=== PATIENT | male | born 1980 | race Caucasian/White ===

== ENCOUNTER → 2016-12-27 | Outpatient (CLI) | payer OTHER ==
[~2016-12-27] MED LIST: DULO-24 PO; HYDR2TAB48 PO; TIZA4CAP PO
--- NOTE | 2016-12-28 18:45 | PAP/PSG TECHNICIAN REPORT ---
[facility] Radio Tower Technician Polysomnogram Report Study name: None Report date: 12/28/2016 Study date: 12/27/2016 Referring Physician: Edward Rushing M.D. Name: RAMIREZLANE Interpreting Physician: Edward Rushing M.D. Date of : 1980 Radio Tower Technician: Lillian Baker PSGT. Sex: Male Age: 36 StudyType: PSG Weight: 410 lbs Height: 36 years, Height 6' 8" Neck Circum:19.5 inches BMI: 45.04 Medications: Medication List was not provided. Patient History 36 yr. old male presents to the sleep lab for a diagnostic titration sleep study. Patient states that his machine is old and his mask is taped together. He would like to get a new machine, mask and tubing. Neck = 19.5 inches. Parameters Monitored NPSG: E1-M2, E2-M1, Fp1-M2, Fp2-M1, F3-M2, F4-M2, F4-M1, C3-M2, C4-M2, C4-M1, O1-M2, O2-M2, O2-M1, T3-M2, T4-M1, P3-M2, P4-M1, CHIN1, CHIN2, HR, EKG, Legs, PFLOW, SNOR, FLOW, CFLOW, Tidal Volume, THOR, ABDO, SpO2, PLTH, CPRESS, ETCO2 Wave, ETCO2, pH Sleep Architecture Sleep Stages Time at Lights Off 10:29:04 PM STAGES Time (min.) TST (%) Time at Lights On 5:00:04 AM Wake 92.0 -- Total Recording Time (TRT) 391.50 min. N1 18.0 6 Total Sleep Period (TSP) 307.0 min. N2 150.5 50 Total Sleep Time (TST) 299.0min. N3 61.0 20 Awake Time 92.5 min. REM 69.5 23 Wake after Sleep Onset 70.0 min. Sleep Efficiency (SE) 76 % Sleep Onset Latency (POLLO) 22.0 min. Number of Stage 1 Shifts None Awakenings 6 Stage Changes 28 Number of REM periods 3 REM 69.5 23 REM Latency 91.5 min. NREM 229.5 77 Body Position Analysis Supine Right Left Side Prone Vertical Total Sleep Time (min.) 296.4 43.3 15.9 59.17 0.0 5.9 Total Sleep Time (%) 80% 14% 5% 20 0% N/A% Total Sleep Time REM (min.) 35.2 34.3 0.0 None 0.0 0.0 Total Sleep Time NREM (min.) 204.6 9.0 15.9 None 0.0 0.0 Intermittent Wake (min.) 56.5 4.1 25.4 None 0.0 5.9 Total Sleep Period (%) 79% None None None None None Arousals Myoclonus (PLM) * Events Count Index Events Count Index Spontaneous 32 6 Events Awake (PLMW) 0 0.0 Respiratory 10 2.0 Events Asleep w/ Arousal (PLMA) 18 3.6 PLM 18 4 Events Asleep w/o Arousal (PLMS) 180 36.1 Snoring 5 1 Total Asleep 198 39.7 Total 65 13 Total 198 30 Respiratory Analysis * CA OA MA CH H RERA Total Count 17 3 0 0 32 0 52 Index 3.4 0.6 0.0 0 6.4 0 10.4 Mean Duration 15.1 14.0 0.0 0.00 19.5 0.0 17.8 Longest Duration 21.3 15.0 0.0 0.00 0.0 0.0 50.8 Respiratory Event Summary Total Supine ~Supine Right Left Prone REM NREM Apneas Count 20 18 2 0 2 N/A 0 20 Index 4.0 5 2 0.0 7.6 N/A 0 5 Hypopneas (4% Desat) Count 32 27 5 0 5 N/A 0 32 Index 6.4 6.8 5 0.0 18.9 N/A 0.0 8.4 Apneas & All Hypopneas Count 52 45 7 0 7 N/A 0 52 Index 10.4 11 7 0 26 N/A 0.0 13.6 Respiratory Events (Rover Tender+All Hyp+RERA) Count 52 45 7 0 7 N/A 0 52 Index 10.4 11 7 0.0 26.4 N/A 0.0 13.6 Respiratory Related Arousal Count 10 45 2 0 2 N/A 0 10 Index 2.0 2 2 0 8 N/A 0 3 Snoring Analysis Supine Right Left Prone REM NREM Total Snore duration 10.1 min Snores count 484 0 1 N/A 27 458 485 Snore mean duration 1.3 Sec Snores index 121 0 4 N/A 23.3 119.7 97.3 TST with snoring (%) 3.4% Desaturation Event Summary: Minimum %SpO2 Event Count Mean/Min/Max Duration(sec.) Desaturation Index % Time In Bed > 90 54 21.0 / 8.5 / 60.0 8.5 98.2 86 - 90 2 12.1 / 10.8 / 13.5 19.4 1.6 81 - 85 0 N/A 0.0 0.2 76 - 80 0 N/A 0.0 0.0 71 - 75 0 N/A 0.0 0.0 66 - 70 0 N/A 0.0 0.0 61 - 65 0 N/A 0.0 0.0 56 - 60 0 N/A 0.0 0.0 51 - 55 0 N/A 0.0 0.0 < 50 0 N/A 0.0 0.0 Total REM NREM Awake <50% 0.0 min. 0.0 min. 0.0 min. 0.0 min. 51 - 60% 0.0 min. 0.0 min. 0.0 min. 0.0 min. 61 - 70% 0.0 min. 0.0 min. 0.0 min. 0.0 min. 71 - 80% 0.0 min. 0.0 min. 0.0 min. 0.0 min. 81 - 90% 7.1 min. 0.0 min. 6.4 min. 0.7 min. 91 - 100% 380.3 min. 69.5 min. 222.8 min. 88.0 min. Average 95 95 94 96 Minimum SpO2 81 92 81 82 Desaturation Event Index 8.3 0.9 13.9 0.0 # Desat. Events below 89% 19 N/A 19 N/A Time(%) with Saturation below 89% 0.7 0.0 0.7 0.0 Time(min.) with Saturation below 89% 2.7 0.0 2.6 0.1 Time (mins) REM (mins) NREM (mins) % of TST SpO2 Below 90% 33 N/A N33 1.5 SpO2 Below 88% 7 0 0 1 Heart Rate Analysis Min (bpm) Max (bpm) Average (bpm) Awake 36 300 60 NREM 47 84 61 REM 49 80 59 Overall 47 84 61 Supplemental O2 Values Minimum O2 level: None Value Start Time End Time Radio Tower Technician Comments PAP Study: Mr. Ramirez slept in the right, left, and supine positions. No cardiac arrhythmia or PLM's noted. No bruxism noted. CPAP was initiated at +4 CMH2O and up-titrated to an optimal level of +10 CMH2O, which nearly eliminated all respiratory events and snoring. A large Res Med Quattro Air, was used during titration Mr. Ramirez awoke to use the restroom zero times during the night. Mr. Ramirez stated, I did not sleep as well as I do when I am in my own bed. The final report will be interpreted and signed by a sleep physician. The completed physician report will then be placed in the patient medical record. Pt. woke at 3:58 am , and wasn't able to go back to sleep the remainder of the study. Therapy Event: Therapy (cm H20) 0 4 6 8 10 Total Time at Pressure (min.) 0.4 51.4 20.7 84.3 234.3 TST at Pressure (min.) 0.0 25.2 18.2 83.3 172.3 # Periods 1 1 1 1 1 Sleep Onset (min.) N/A 21.6 0.0 0.0 0.0 REM Onset (min.) N/A N/A N/A 41.1 34.3 Sleep Efficiency % 0 49 87 98 73 Wakefulness (%) 100.0 50.9 12.1 1.2 26.5 Wakefulness (min.) 0.4 26.1 2.5 1.0 62.0 NREM 1 (%) 0.0 30.2 7.3 1.2 0.0 NREM 1 (min.) 0.0 15.5 1.5 1.0 0.0 NREM 2 (%) 0.0 18.9 80.7 49.6 35.1 NREM 2 (min.) 0.0 9.7 16.7 41.8 82.3 NREM 3 (%) 0.0 0.0 0.0 35.0 13.4 NREM 3 (min.) 0.0 0.0 0.0 29.5 31.5 REM (%) 0.0 0.0 0.0 13.1 25.0 REM (min.) 0.0 0.0 0.0 11.0 58.5 # Arousals N/A 14 14 19 18 Arousal Index N/A 33.3 46.2 13.7 6.3 # Snore N/A 6 7 350 122 Snore Index N/A 14.3 23.1 252.2 42.5 AHI N/A 45.2 82.5 4.3 0.7 AHI Supine N/A 77.0 82.5 4.3 0.9 AHI Non-Supine N/A 26.4 N/A N/A 0.0 NREM AHI N/A 45.2 82.5 5.0 1.1 REM AHI N/A N/A N/A 0.0 0.0 RDI N/A 45.2 82.5 4.3 0.7 # Obstructive N/A 2 1 0 0 # Central Ap N/A 9 8 0 0 # Mixed N/A 0 0 0 0 # Hypopneas N/A 8 16 6 2 RERAS N/A 0 0 0 0 Total Respiratory Events N/A 19 25 6 2 Time Below SpO2 89.00% (min.) 0.0 0.9 1.6 0.0 0.0 Mean NREM SpO2 (%) N/A 93 94 93 95 Mean REM SpO2 (%) N/A N/A N/A 94 95 Mean Sleep SpO2 (%) N/A 93 94 93 95 Min NREM SpO2 (%) N/A 81 81 88 91 Min REM SpO2 (%) N/A N/A N/A 92 94 Position Supine (min.) 0.0 9.3 18.2 83.3 129.0 Position Non-supine (min.) 0.0 15.9 0.0 0.0 43.3 LM Index Sleep N/A 66.6 141.9 42.5 23.7 LM Index NREM N/A 66.6 141.9 39.0 19.5 LM Index REM N/A N/A N/A 65.5 31.8 Mean Heart Rate (bpm) N/A 63 59 65 58 Min Heart Rate (bpm) N/A 53 49 49 47
--- NOTE | 2017-01-09 13:12 | POLYSOMNOGRAPH REPORT ---
CLINICAL DATA: A 36-year-old male with a BMI of 45 referred by myself and Dr. Romero for repeat CPAP titration study. He does have a CPAP machine which is very old; he needs a new machine and new supplies. SLEEP ARCHITECTURE: Total recording time was 391.5 minutes. Total sleep period was 307 minutes. Total sleep time was 299 minutes divided between 229.5 minutes of non-REM sleep and 69.5 minutes of REM sleep. Sleep onset latency was 22 minutes. REM latency was 91.5 minutes. Sleep efficiency was 76%. Wake after sleep onset was 70 minutes. Sleep consisted of stage N1 6%, stage N2 50%, stage N3 20%, and REM 23%. AROUSAL DATA: Sixty-five arousals were recorded for an index of 13 per hour. PLM DATA: Moderately elevated limb movements during sleep were noted. There were 198 limb movements during sleep noted for an index of 39.7 per hour with arousal index of 3.6 per hour. RESPIRATORY DATA: The AHI was 10.4. There were 17 central and 3 obstructive apneic episodes. The longest duration of apnea was 21.3 seconds. There were 32 hypopneic episodes with a mean duration of 19.5 seconds. OXIMETRY DATA: Transient nocturnal hypoxemia was seen. Oxygen gorge was 81% during non-REM sleep. The mean saturation was 95%. Time below 88% was 7 minutes. EKG: Heart rates ranged from 47-84 beats per minute. No arrhythmias were noted. INVESTMENT FUND MANAGER'S COMMENTS: The patient slept in the right, left, and supine positions. The patient used a large ResMed Quattro Air mask. He was titrated up to 10 cm water pressure. At his final pressure setting, he slept for 172 minutes with an AHI of 0.7. IMPRESSION: Obstructive sleep apnea corrected with CPAP 10 cm of water pressure large ResMed Quattro Air mask. RECOMMENDATIONS: The patient will be started on the above noted treatment regimen and seen back in followup within 90 days to document efficacy and compliance. MARCO
== END | disposition home or self-care (01) ==
LOC: C.NEUR 20:00
PROVIDERS: ATTEND Neuromusculoskeletal Medicine & OMM
DX: G47.33 Obstructive sleep apnea (adult) (pediatric) (principal)

== ENCOUNTER → 2017-02-22 | Outpatient (CLI) | payer OTHER ==
[~2017-02-22] VITALS: Ht 200.7 cm; Wt 181.4 kg
[2017-02-22 16:23] VITALS: BP 140/94; PULSE 70; Ht 200.7 cm; Wt 181.4 kg
== END | disposition home or self-care (01) ==
LOC: C.NEUR 12:57
PROVIDERS: ATTEND Internal Medicine Pulmonary Disease
DX: G47.33 Obstructive sleep apnea (adult) (pediatric) (principal); Z99.89 Dependence on other enabling machines and devices